=== PATIENT | male | born 1930 | race Caucasian/White ===

== ENCOUNTER 2020-08-25 11:26 | Emergency (ER) | payer MEDICARE, OTHER ==
[~2020-08-25] VITALS: Ht 185.4 cm; Wt 83.9 kg
[~2020-08-25 11:26] MED LIST: AMLO10 PO; Aspir 8181 MG PO; BISO5; BISO5 PO; CAND32 PO; CARB200 PO; CLOP75 PO; DORZOLAMIDE 2%10 ML LEFTEYE; ESCITALOPRAM OXA5 MG PO; Flomax0.4 MG PO; GABA300; GABA300 PO; HYDCHL25; OMEP20ER; Pantoprazole So20 MG PO; Pravachol40 MG PO; Spironolactone1 EACH PO; TRAZ100 PO; Travatan Z5 ML LEFTEYE
[2020-08-25 11:57] LABS: BASOPHILS ABSOLUTE AUTO 0.03 K/mm3 (0.00-0.23); BASOPHILS PERCENT AUTO 1 % (0-2); EOSINOPHILS ABSOLUTE AUTO 0.14 K/mm3 (0.00-0.68); EOSINOPHILS PERCENT AUTO 3 % (0-6); Hematocrit 39.9 % (37.0-53.0); Hemoglobin 13.5 g/dL (13.5-17.5); IMMATURE GRAN ABSOLUTE AUTO 0.02 K/mm3 (0.00-0.10); IMMATURE GRAN PERCENT AUTO 0 % (0-1); LYMPHOCYTES ABSOLUTE AUTO 1.59 K/mm3 (0.84-5.20); LYMPHOCYTES PERCENT AUTO 30 % (21-46); MONOCYTES ABSOLUTE AUTO 0.52 K/mm3 (0.16-1.47); MONOCYTES PERCENT AUTO 10 % (4-13); Mean Corpuscular HGB 32.9 pg (26.0-34.0); Mean Corpuscular HGB Conc 33.8 g/dL (31.5-36.5); Mean Corpuscular Volume 97 fL (80-100); NEUTROPHILS ABSOLUTE AUTO 3.03 K/mm3 (1.96-9.15); NEUTROPHILS PERCENT AUTO 57 % (41-73); Platelet Count 191 K/mm3 (150-400); RDW Coefficient Variation 12.6 % (11.7-14.2); RDW Standard Deviation 45.4 fL (35.1-46.3); White Blood Cell Count 5.33 K/mm3 (4.00-11.30)
[2020-08-25 12:10] LABS: Albumin, Blood 3.6 g/dL (3.4-5.0); Bilirubin, Total 0.4 mg/dL (0.1-1.0); Bun/Creatinine Ratio 19.5 (12.0-20.0); Calcium, Blood 8.6 mg/dL (8.5-10.1); Creatinine, Blood 1.28 mg/dL (0.60-1.20); Globulin, Blood 3.6 g/dL (2.2-4.0); Potassium, Blood 4.2 mmol/L (3.5-5.5); Total Protein, Blood 7.2 g/dL (6.4-8.2)
[2020-08-25] MEDS ORDERED: OLME20 PO (14:52)
[2020-08-25] MEDS ORDERED: BISOPROLOL-HCT1 EAC2 PO (14:54)
[2020-08-25] MEDS ORDERED: UBID10 PO (14:55)
== END 2020-08-25 19:10 | disposition home or self-care (01) ==
LOC: ER 11:26
PROVIDERS: Emergency Medicine
DX: I10 Essential (primary) hypertension (principal); Z79.02 Long term (current) use of antithrombotics/antiplatelets; Z79.82 Long term (current) use of aspirin; Z79.899 Other long term (current) drug therapy
CPT/HCPCS: 36415; 70450; 71045; 80053; 84484; 85025; 93005; 93010; 96374; 96376; 99283-25; A9270; J0360

== ENCOUNTER 2020-09-10 22:01 | Emergency (ER) | payer MEDICARE, OTHER ==
[~2020-09-10] VITALS: Ht 185.4 cm; Wt 74.8 kg
[~2020-09-10 22:01] MED LIST changes: +BISOPROLOL-HCT1 EAC2 PO; +OLME20 PO; +UBID10 PO
[2020-09-10 22:41] LABS: BASOPHILS ABSOLUTE AUTO 0.03 K/mm3 (0.00-0.23); BASOPHILS PERCENT AUTO 1 % (0-2); EOSINOPHILS ABSOLUTE AUTO 0.13 K/mm3 (0.00-0.68); EOSINOPHILS PERCENT AUTO 3 % (0-6); Hematocrit 37.9 % (37.0-53.0); Hemoglobin 12.9 g/dL (13.5-17.5); IMMATURE GRAN ABSOLUTE AUTO 0.01 K/mm3 (0.00-0.10); IMMATURE GRAN PERCENT AUTO 0 % (0-1); LYMPHOCYTES ABSOLUTE AUTO 1.64 K/mm3 (0.84-5.20); LYMPHOCYTES PERCENT AUTO 35 % (21-46); MONOCYTES ABSOLUTE AUTO 0.43 K/mm3 (0.16-1.47); MONOCYTES PERCENT AUTO 9 % (4-13); Mean Corpuscular HGB 32.9 pg (26.0-34.0); Mean Corpuscular Volume 97 fL (80-100); Mean Platelet Volume 9.8 fL (9.1-12.4); NEUTROPHILS ABSOLUTE AUTO 2.51 K/mm3 (1.96-9.15); NEUTROPHILS PERCENT AUTO 53 % (41-73); Platelet Count 190 K/mm3 (150-400); RDW Coefficient Variation 12.5 % (11.7-14.2); RDW Standard Deviation 44.6 fL (35.1-46.3); Red Blood Cell Count 3.92 M/mm3 (4.30-5.90); White Blood Cell Count 4.75 K/mm3 (4.00-11.30)
[2020-09-10 23:04] LABS: Troponin I <0.015 ng/mL (0.000-0.040)
[2020-09-10 23:05] LABS: Alanine Aminotransfer (ALT/SGP 15 U/L (12-78); Albumin, Blood 3.5 g/dL (3.4-5.0); Alk Phos 51 U/L (50-136); Anion Gap 6 mmol/L (6-16); Aspartate Aminotrans (AST/SGOT 13 U/L (12-37); Bilirubin, Total 0.4 mg/dL (0.1-1.0); Blood Urea Nitrogen 24 mg/dL (8-24); CO2, Blood 25 mmol/L (21-32); Calcium, Blood 8.5 mg/dL (8.5-10.1); Chloride, Blood 102 mmol/L (98-108); Creatinine, Blood 1.33 mg/dL (0.60-1.20); Globulin, Blood 3.4 g/dL (2.2-4.0); Glomerular Filtration Rate 51 (60-); Glucose, Blood 95 mg/dL (70-99); Potassium, Blood 3.8 mmol/L (3.5-5.5); Sodium, Blood 133 mmol/L (136-145); Total Protein, Blood 6.9 g/dL (6.4-8.2)
[2020-09-11] MEDS ORDERED: ACET500 PO (00:28)
[2020-09-11] MEDS ORDERED: ALBU90OI INH (00:29)
[2020-09-11] MEDS ORDERED: AZELASTINE137 MCG/01 (00:30)
[2020-09-11] MEDS ORDERED: B-121000 MC3 PO (00:31)
[2020-09-11] MEDS ORDERED: VITAMIN D31000 UNI1 PO (00:31)
[2020-09-11] MEDS ORDERED: FLONASE ALLERG9.9 M2 (00:32)
[2020-09-11] MEDS ORDERED: MAGNESIUM L-LAC84 MG PO (00:33)
[2020-09-11] MEDS ORDERED: NITR.4SL SL (00:33)
[2020-09-11] MEDS ORDERED: Benicar40 MG PO (00:34)
[2020-09-11] MEDS ORDERED: MIRALAX17 GM PO (00:34)
== END 2020-09-11 02:28 | disposition home or self-care (01) ==
LOC: ER 22:01
PROVIDERS: Emergency Medicine
DX: I10 Essential (primary) hypertension (principal); Z79.899 Other long term (current) drug therapy; Z79.02 Long term (current) use of antithrombotics/antiplatelets
CPT/HCPCS: 36415; 80053; 84484; 85025; 93005; 93010; 96374; 99283-25; J0360

== ENCOUNTER 2021-04-22 16:26 | Emergency (ER) | payer MEDICARE, OTHER ==
[~2021-04-22] VITALS: Ht 185.4 cm; Wt 83.9 kg
[~2021-04-22 16:26] MED LIST changes: +ACET500 PO; +ALBU90OI INH; +AZELASTINE137 MCG/01; +B-121000 MC3 PO; +Benicar40 MG PO; +FLONASE ALLERG9.9 M2; +MAGNESIUM L-LAC84 MG PO; +MIRALAX17 GM PO; +NITR.4SL SL; +VITAMIN D31000 UNI1 PO
[2021-04-22 17:57] LABS: BASOPHILS ABSOLUTE AUTO 0.03 K/mm3 (0.00-0.23); BASOPHILS PERCENT AUTO 1 % (0-2); EOSINOPHILS PERCENT AUTO 3 % (0-6); Hematocrit 40.6 % (37.0-53.0); Hemoglobin 13.6 g/dL (13.5-17.5); IMMATURE GRAN ABSOLUTE AUTO 0.01 K/mm3 (0.00-0.10); IMMATURE GRAN PERCENT AUTO 0 % (0-1); LYMPHOCYTES ABSOLUTE AUTO 0.88 K/mm3 (0.84-5.20); LYMPHOCYTES PERCENT AUTO 23 % (21-46); MONOCYTES ABSOLUTE AUTO 0.39 K/mm3 (0.16-1.47); MONOCYTES PERCENT AUTO 10 % (4-13); Mean Corpuscular HGB 33.6 pg (26.0-34.0); Mean Corpuscular HGB Conc 33.5 g/dL (31.5-36.5); Mean Corpuscular Volume 100 fL (80-100); Mean Platelet Volume 9.9 fL (9.1-12.4); NEUTROPHILS ABSOLUTE AUTO 2.39 K/mm3 (1.96-9.15); NEUTROPHILS PERCENT AUTO 63 % (41-73); Platelet Count 194 K/mm3 (150-400); RDW Coefficient Variation 12.8 % (11.7-14.2); RDW Standard Deviation 47.8 fL (35.1-46.3); Red Blood Cell Count 4.05 M/mm3 (4.30-5.90)
[2021-04-22 18:11] LABS: Albumin, Blood 3.7 g/dL (3.4-5.0); Albumin/Globulin Ratio 1.1 (0.8-1.8); Bilirubin, Total 0.4 mg/dL (0.1-1.0); Bun/Creatinine Ratio 16.2 (12.0-20.0); Calcium, Blood 8.6 mg/dL (8.5-10.1); Creatinine, Blood 1.6 mg/dL (0.60-1.20); Globulin, Blood 3.3 g/dL (2.2-4.0); Potassium, Blood 3.9 mmol/L (3.5-5.5)
== END 2021-04-22 21:20 | disposition home or self-care (01) ==
LOC: ER 16:26
PROVIDERS: Emergency Medicine
DX: R55 Syncope and collapse (principal); I12.9 Hypertensive chronic kidney disease with stage 1 through stage 4 chronic kidney disease, or unspecified chronic kidney disease; N18.9 Chronic kidney disease, unspecified; Z86.79 Personal history of other diseases of the circulatory system
CPT/HCPCS: 36415; 70450; 74175; 80053; 84484; 85025; 93005; 93010; 99284-25; Q9967

== ENCOUNTER 2021-06-14 08:04 | Observation (INO) | payer MEDICARE, OTHER ==
--- NOTE | 2021-06-10 06:35 | NUR ---
PT TOOK HIS PLAVIX THIS AM AND HAS NOT BEEN STOPPING IT. PER DR BERRIOS WE WILL RESCHEDULE FOR NOW. DR BERRIOS WILL DISCUSS PLAN OF CARE
--- NOTE | 2021-06-10 07:23 | NUR ---
DR BERRIOS IN ROOM DISCUSSING PLAN OF CARE. PT PROCEDURE WILL BE RESCHEDULED FOR A NEXT WEEK. PT AND S/O VERBALIZES UNDERSTANDING WRITTEN AND VERBAL INSTRUCTIONS OF HOLDING PLAVIX UNTIL AFTER PROCEDURE IS COMPLETE.
[~2021-06-14] VITALS: Ht 185.4 cm; Wt 83.0 kg
[~2021-06-14 08:04] MED LIST changes: +CATAPRES0.1 MG PO; +Coenzyme Q1050 MG PO
--- NOTE | 2021-06-14 18:04 | NUR ---
SHIFT SUMMARY PT HAS BEEN RESTING IN ROOM SINCE [facility]AL [facility]. PT HAS BEEN UP TO THE RESTROOM WITH NO ASSISTANCE TWICE. PT HAS HAD MILD DISCOMFORT AT OPERATIVE SITE AND PAIN / THAT WAS SUCCESSFULLY MANAGED, /, WITH MEDICATION. PT HAS BEEN PLEASANT AND COOPERATIVE WITH CARES. SBP HAS BEEN ELEVATED SINCE ARRIVAL, SBP 170'S.
--- NOTE | 2021-06-15 06:48 | NUR ---
POST OP DAY 1 FROM PACEMAKER PLACEMENT. DRESSING IS C/D/I, SLIGHT SWELLING AT INCISION SITE, ICE APPLIED. PAIN MANAGEMENT WITH PRN MEDICATIONS ORDERED FOR REPORTED PAIN OF 5-7/10. PERSISTENT HYPERTENSION IN PT WITH HISTORY OF HYPERTENSION AND ON MULTIPLE ANTIHYPERTENSIVE MEDICATIONS. MOST RECENT WAS 182/96. PT STATES THAT HIS MORNING BP CAN BE HIGH AT THIS AT TIMES, AND THEN DROPS AFTER HIS MORNING MEDICATIONS. MULTIPLE ANTIHYPERTENSIVE MEDICATIONS ORDERED FOR THIS MORNING. WILL ADVISE ONCOMING RN OF ABOVE.
[2021-06-15] MEDS ORDERED: LATA.005SO BOTHEYES (13:01)
== END 2021-06-15 13:34 | disposition home or self-care (01) ==
LOC: MHTC 08:04 → PCU 11:17 → MHTC 11:38 → PCU 06-15 13:34
PROVIDERS: ADMIT Internal Medicine Cardiovascular Disease
DX: I49.5 Sick sinus syndrome (principal); I45.5 Other specified heart block; I10 Essential (primary) hypertension; J44.9 Chronic obstructive pulmonary disease, unspecified
CPT/HCPCS: 33208; 33286; 71046; 93005; 93010; 96374; 96376; 99152; 99153; A9270; C1785; C1894; C1898; G0378; J0690; J1580; J1644; J2250; J3010; J7030; J7040